=== PATIENT | female | born 1985 | race Caucasian/White ===

== ENCOUNTER 2020-05-07 12:06 | Emergency (ER) | payer OTHER ==
[~2020-05-07] VITALS: Ht 165.1 cm; Wt 99.8 kg
[2020-05-07] MEDS ORDERED: CENTANY30 GM TOP (12:55)
[2020-05-07] MEDS ORDERED: DOXYCYCLINE 10100 MG PO (12:55)
[2020-05-07 14:20] VITALS: BP 113/79
== END 2020-05-07 14:20 | disposition home or self-care (01) ==
LOC: M.ERS 12:06
DX: S61.432A Puncture wound without foreign body of left hand, initial encounter (principal); Z88.1 Allergy status to other antibiotic agents; W55.01XA Bitten by cat, initial encounter; Y93.89 Activity, other specified; Y92.89 Other specified places as the place of occurrence of the external cause; Y99.8 Other external cause status